=== PATIENT | male | born 2000 | race Caucasian/White ===

== ENCOUNTER 2024-02-07 02:26 | Emergency (ER) | payer SELFPAY ==
[2024-02-07 02:35] VITALS: BP 124/76; PULSE 90; RESP 20; TEMP 98.2; BMI 21.9
[2024-02-07] MEDS ORDERED: IBUPROFEN 200 MG TABLET PO ONE (03:48)
== END 2024-02-07 03:49 | disposition home or self-care (01) ==
LOC: JER 02:26
DX: H92.01 Otalgia, right ear (principal); K08.89 Other specified disorders of teeth and supporting structures; R51.9 Headache, unspecified
CPT/HCPCS: 99283-25